=== PATIENT | female | born 1990 | race American Indian/Alaskan Native ===

== ENCOUNTER 2021-07-21 21:50 | Emergency (ER) | payer SELFPAY ==
--- NOTE | 2021-07-21 22:15 | Emergency Department Report ---
ED General Adult HPI - General Stated complaint: HEADACHE Time Seen by Provider: 07/21/21 22:07 - History of Present Illness Initial comments: Patient presents with complaints of headache x 3 days, bifrontal, throbbing, non-radiating, 10/10, worsened by light and noise, not relieved by anything, associated with nausea, non bloody, non bilious emesis. Denies numbness, weakness, neck stiffness, rhinorrhea, nasal congestion. Does not have a hx of migraines. Was seen @ another ER 2 days ago and given a shot that included a steroid and sent home on fioricet. No imaging was done @ the time. - Related Data Allergies Allergy/AdvReac Type Severity Reaction Status Date / Time No Known Allergies Allergy Verified 07/21/21 22:23 ED Review of Systems ROS: Stated complaint: HEADACHE Other details as noted in HPI Comment: All other systems reviewed and negative Constitutional: denies: chills, fever ED Past Medical Hx - Past Medical History Previous Medical History?: No ED Physical Exam - General General appearance: alert, other (wrihing in pain) - Head Head exam: Present: atraumatic, normocephalic - Eye Eye exam: Present: PERRL, EOMI - ENT ENT exam: Present: mucous membranes moist, other (airway patewnt) - Neck Neck exam: Present: other (supple; no JVD) - Respiratory Respiratory exam: Present: other (good air entry, nml I:E, CTAB; no use of DEEPA) - Cardiovascular Cardiovascular Exam: Present: regular rate. Absent: rubs, gallop - GI/Abdominal GI/Abdominal exam: Present: soft, normal bowel sounds. Absent: distended, tenderness - Extremities Exam Extremities exam: Present: full ROM. Absent: calf tenderness - Back Exam Back exam: Present: full ROM. Absent: tenderness - Neurological Exam Neurological exam: Present: alert, oriented X3, CN II-XII intact, other (neg Kernig's and Brudzinski's signs). Absent: motor sensory deficit - Skin Skin exam: Present: warm, normal color ED Course Vital Signs 07/21/21 07/22/21 22:10 02:55 Temperature 98 F 98 F Pulse Rate 108 H 82 Respiratory 18 18 Rate Blood Pressure 110/78 Blood Pressure 132/78 [Left] O2 Sat by Pulse 100 100 Oximetry ED Medical Decision Making - Lab Data Result diagrams: 07/22/21 00:09 07/21/21 22:44 Laboratory Tests 07/21/21 07/21/21 07/22/21 22:44 22:44 00:09 WBC 12.0 H RBC 3.82 Hgb 12.5 Hct 38.7 MCV 101 H MCH 33 H MCHC 32 RDW 13.1 L Plt Count 255 Lymph % (Auto) [place] Taylor % (Auto) [place] Eos % (Auto) [place] Baso % (Auto) [place] Lymph # (Auto) [place] Taylor # (Auto) [place] Eos # (Auto) [place] Baso # (Auto) [place] Seg Neutrophils % [place] Seg Neutrophils # [place] ESR 6 Sodium 140 Potassium 3.8 Chloride 100.3 Carbon Dioxide 24 Anion Gap 20 BUN 11 Creatinine 0.8 Estimated GFR > 60 BUN/Creatinine Ratio 14 Glucose 121 H Calcium 9.5 Total Bilirubin 0.60 AST 27 ALT 14 Alkaline Phosphatase 42 Total Protein 8.1 Albumin 5.0 Albumin/Globulin Ratio 1.6 HCG, Qual Negative CT head: no acute intracranial process Leukocytosis likely from steroids from last ER visit 2 days ago @ [facility]; sed rate wnl - Medical Decision Making Diff dz: likely 2/2 migraine ZARATE. Sinusitis, ICH, SAH, cerebral edema ruled out. CVA, intracranial space occupying lesion, meningitis unlikely. Received imitrex 6 mg SC x 1, reglan 10 mg IV x 1. ZARATE went down to an intolerable 2 Received morphine 4 mg IV x 1. Did not help at all. received ketorolac 15 mg IV x 1. ZARATE finally resolved. Critical care attestation.: If time is entered above; I have spent that time in minutes in the direct care of this critically ill patient, excluding procedure time. ED Disposition Clinical Impression: Headache Qualifiers: Headache type: unspecified Headache chronicity pattern: acute headache Intractability: not intractable Qualified Code(s): R51.9 - Headache, unspecified Disposition: 01 HOME / SELF CARE / HOMELESS Is pt being admited?: No Does the pt Need Aspirin: No Condition: Stable Additional Instructions: Return to the ER if your symptoms worsen.
[2021-07-21] MEDS ORDERED: SUMAtriptan SUCCINATE 6 MG/0.5 ML INJ SUB-Q ONE (22:16)
[2021-07-21] MEDS ORDERED: METOCLOPRAMIDE 10 MG/2 ML INJ IV ONE (22:16)
[2021-07-21 23:45] LABS: Alanine Aminotransferase 14 units/L (7-56); BUN/Creatinine Ratio 14; Blood Urea Nitrogen 11 mg/dL (7-17); Calcium 9.5 mg/dL (8.4-10.2); Hemolysis Index 28
--- NOTE | 2021-07-22 00:33 | Cat Scan Report ---
CT head without contrast INDICATION : Headache TECHNIQUE: Axial imaging performed from the skull apex through the skull base without the use of con trast. All CT examinations performed at this facility utilize dose modulation, iterative reconstruct ion or weight-based dosing, when appropriate, to reduce radiation dose to as low as reasonably achiev able. COMPARISON: None FINDINGS: No acute intracranial hemorrhage or parenchymal abnormality. Ventricles are normal in si ze and appear symmetric. Soft tissues including the orbits appear normal. No acute osseous abnorm ality. Sinuses and mastoid air cells are clear. IMPRESSION: No acute abnormality. Signer Name: Alo Blake MD Signed: 07/22/2021 12:29 AM Workstation Name: [id number]
[2021-07-22 00:55] LABS: Hematocrit 38.7 % (30.3-42.9); Hemoglobin 12.5 gm/dl (10.1-14.3); Mean Corpuscular HGB Conc 32 % (30-34); Mean Corpuscular Volume 101 fl (79-97); Platelet Count 255 K/mm3 (140-440); Red Blood Count 3.82 M/mm3 (3.65-5.03); Red Cell Distribution Width 13.1 % (13.2-15.2)
[2021-07-22] MEDS ORDERED: MORPHINE 4 MG/1 ML INJ IV ONE (00:55)
[2021-07-22 02:05] LABS: Erythrocyte Sedimentation Rate 6 mm/Hr (0-20)
[2021-07-22] MEDS ORDERED: KETOROLAC 30 MG/1 ML INJ IV ONE (02:41)
[2021-07-22 06:14] VITALS: BP 124/78
== END 2021-07-22 05:30 | disposition home or self-care (01) ==
LOC: ED 21:50
DX: R51.9 Headache, unspecified (principal); Z79.899 Other long term (current) drug therapy
CPT/HCPCS: 36415; 70450; 80053; 84703; 85025; 85652; 96372; 96374; 96375; 99284; J1885; J2270; J2765; J3490; J3030